=== PATIENT | female | born 1960 | race Caucasian/White ===

== ENCOUNTER 2020-02-13 23:01 | Emergency (ER) | payer MEDICARE, MEDICAID, SELFPAY ==
[2020-02-13 23:10] VITALS: BP 143/83; PULSE 82; RESP 18; O2SAT 93; BMI 18.4
--- NOTE | 2020-02-13 23:16 | ED_ITS ---
HPI - General Adult General: Chief complaint: General Medical Stated complaint: HYPERTENSIVE Time Seen by Provider: 02/13/20 23:13 Source: patient Mode of arrival: ambulatory Limitations: no limitations History of Present Illness: HPI narrative: Patient comes in by ambulance for concerns of high blood pressure. Patient had not felt good for about 4 days stated she will seen her primary care yesterday and her blood pressure was elevated. They recommended that she monitor her blood pressure at home and then follow back up. Patient was checking her blood pressure tonight and noticed that it was high and then got higher so she called the ambulance for further concerns. Patient appears well. Patient appears in no pain. Review of Systems General: Reports: 10 or more systems reviewed and unremarkable except in HPI and below PFSH ED PFSH: Medical History (Updated 02/14/20 @ 02:49 by NAA Kaye) Depression JUS (generalized anxiety disorder) Insomnia Lumbar disc disease with radiculopathy Social History (Updated 09/12/19 @ 16:25 by Maddie Ruiz LPN) Smoking and tobacco status: current every day smoker cigarettes Packs smoked per day: 0.25 Physical Exam Const: COMMON NORMALS: no acute distress and patient oriented x3 GENERAL APPEARANCE: cooperative HENMT: COMMON NORMALS: normocephalic and Normal external nose present HEAD & SCALP: normal to inspection and normocephalic NOSE: Normal external nose present MOUTH: Normal oral and palatal mucosa present Eye: GENERAL EYE: appearance normal, both eyes and all related structures Neck/C-Spine: COMMON NORMALS: full ROM Lymph: LYMPHATIC: no lymphadenopathy noted Chest: COMMONS NORMALS: normal inspection of the chest Resp: COMMON NORMALS: normal respiratory effort EFFORT & INSPECTION: Yes able to speak in complete sentences Cardio: COMMON NORMALS: regular rate and regular rhythm RATE: regular rate RHYTHM: regular rhythm GI: COMMON NORMALS: non-tender : COMMON NORMALS: Yes no CVA tenderness BLADDER/KIDNEY EXAM: Yes no CVA tenderness Back/Pelvis: COMMON NORMALS: no CVA tenderness and thoracic and lumbar spine normal to inspection Extremity: COMMON NORMALS: normal to inspection Neuro: COMMON NORMALS: patient oriented x3 and moves all extremities Psych: COMMON NORMALS: mental status grossly normal and cooperative Skin: COMMON NORMALS: no rashes or lesions noted GENERAL SKIN EXAM: no rashes or lesions noted Course Vital Signs: Vital signs: Vital Signs Pulse Rate 76 07/03/20 03:15 Respiratory Rate 17 02/14/20 03:15 Blood Pressure 165/81 02/14/20 03:15 Pulse Oximetry 94 02/14/20 03:15 MDM - General Adult MDM Narrative: Medical decision making narrative: Patient comes in today for complaints of feeling poorly and elevated blood pressure. Patient reports feeling bad for the last 4 days. Patient states that she went to her doctor and they noticed that she had elevated blood pressure and recommended she monitor it. Patient had taken her blood pressure at home and noted that it was really high causing her great concern and having her call the ambulance. On exam patient appears well. Patient had some mild abdominal pain on palpation. Vital signs were normal except for some mild elevation in blood pressure of 140 systolic. Differential diagnosis includes but not limited to gastritis, gastroenteritis, pancreatitis, uncontrolled hypertension, UTI. Laboratory values noted no significant abnormalities except for mild hypokalemia at 3.1. Urinalysis noticed a large amount of white blood cells in the urine. CT scan of the abdomen and pelvis noted no significant abnormalities. Reviewed exam with patient recommended treatment for urinary tract infection. Recommend follow-up with primary care in 1 week for repeat evaluation of urinalysis. Patient reported understanding agreed to plan. Lab Data: Labs: Lab Results 02/13/20 02/13/20 02/13/20 Range/Units 23:40 23:40 23:40 WBC 4.9 (4.0-10.0) 10^3/ uL RBC 4.26 (4.1-5.3) 10^6/u L Hgb 14.5 (11.5-15.3) g/dL Hct 42.5 (37.0-47.0) % MCV 99.8 H (81-99) fL MCH 34.0 (28.0-34.0) pg MCHC 34.1 (30.0-36.0) g/dL RDW 13.2 (12.1-15.1) % Plt Count 95 L (130-400) 10^3/c mm MPV 9.7 (7.4-10.4) fL Neut % (Auto) 59.2 % Lymph % (Auto) 29.2 % [place] % (Auto) 8.8 % Eos % (Auto) 1.8 % Baso % (Auto) 0.8 % Neut # (Auto) 2.9 (1.8-7.7) 10^3/u L Lymph # (Auto) 1.4 (0.8-4.8) 10^3/u L [place] # (Auto) 0.4 (0.2-0.9) 10^3/u L Eos # (Auto) 0.1 (0.0-0.8) 10^3/u L Baso # (Auto) 0.0 (0.0-0.1) 10^3/u L Nucleated RBC % (a uto) 0 % Nucleated RBCs # 0.0 /100WBC Sodium 141 (136-145) mmol/L Potassium 3.1 L (3.5-5.1) mmol/L Chloride 104 (98-107) mmol/L Carbon Dioxide 24 (22-29) mmol/L Anion Gap 16.1 (5-19) BUN 16 (6-20) mg/dL Creatinine 0.3 L (0.5-0.9) mg/dL GFR Calculation 227.7 H (90-130) mL/min Glucose 88 (65-115) mg/dL Calculated Osmolal ity 288 (285-295) mOsm/k g Calcium 8.6 (8.5-10.5) mg/dL Total Bilirubin 0.3 (0.15-1.2) mg/dL AST 52 H (0-32) U/L ALT 31 (0-33) U/L Alkaline Phosphata se 112 H (35-105) IU/L Troponin T Baselin e 11 H (0-10) ng/L Troponin T 120 Min [place] (0-10) ng/L Delta Troponin T (0-10) ABS# Total Protein 6.7 (6.6-8.7) g/dL Albumin 4.1 (3.5-5.2) g/dL Globulin 2.6 (1.3-4.6) g/dL Lipase (13-60) U/L Urine Color (Yellow) Urine Appearance (CLEAR) Urine pH (5-7) Ur Specific Gravit y (1.005-1.030) Urine Protein (Negative) Urine Glucose (UA) (Normal) Urine Ketones (Negative) Urine Blood (Negative) Urine Nitrate (Negative) Urine Bilirubin (NEGATIVE) Urine Urobilinogen (Negative) mg/dL Ur Leukocyte [place] ase (Negative) Urine RBC (0-2) /hpf Urine WBC (0-5) /hpf Ur Squamous Epith Cells (0-5) Calcium Oxalate Cr ystal /hpf Amorphous Sediment Urine Bacteria (NONE) 02/13/20 02/14/20 02/14/20 Range/Units 23:40 01:17 01:41 WBC (4.0-10.0) 10^3/ uL RBC (4.1-5.3) 10^6/u L Hgb (11.5-15.3) g/dL Hct (37.0-47.0) % MCV (81-99) fL MCH (28.0-34.0) pg MCHC (30.0-36.0) g/dL RDW (12.1-15.1) % Plt Count (130-400) 10^3/c mm MPV (7.4-10.4) fL Neut % (Auto) % Lymph % (Auto) % [place] % (Auto) % Eos % (Auto) % Baso % (Auto) % Neut # (Auto) (1.8-7.7) 10^3/u L Lymph # (Auto) (0.8-4.8) 10^3/u L [place] # (Auto) (0.2-0.9) 10^3/u L Eos # (Auto) (0.0-0.8) 10^3/u L Baso # (Auto) (0.0-0.1) 10^3/u L Nucleated RBC % (a uto) % Nucleated RBCs # /100WBC Sodium (136-145) mmol/L Potassium (3.5-5.1) mmol/L Chloride (98-107) mmol/L Carbon Dioxide (22-29) mmol/L Anion Gap (5-19) BUN (6-20) mg/dL Creatinine (0.5-0.9) mg/dL GFR Calculation (90-130) mL/min Glucose (65-115) mg/dL Calculated Osmolal ity (285-295) mOsm/k g Calcium (8.5-10.5) mg/dL Total Bilirubin (0.15-1.2) mg/dL AST (0-32) U/L ALT (0-33) U/L Alkaline Phosphata se (35-105) IU/L Troponin T Baselin e (0-10) ng/L Troponin T 120 Min [place] 9.37 (0-10) ng/L Delta Troponin T -1.63 L (0-10) ABS# Total Protein (6.6-8.7) g/dL Albumin (3.5-5.2) g/dL Globulin (1.3-4.6) g/dL Lipase 174 H (13-60) U/L Urine Color Yellow (Yellow) Urine Appearance Cloudy (CLEAR) Urine pH 5 (5-7) Ur Specific Gravit y 1.020 (1.005-1.030) Urine Protein 1+ H (Negative) Urine Glucose (UA) Norm (Normal) Urine Ketones Negative (Negative) Urine Blood 2+ H (Negative) Urine Nitrate Positive H (Negative) Urine Bilirubin Neg (NEGATIVE) Urine Urobilinogen Norm (Negative) mg/dL Ur Leukocyte [place] ase 2+ H (Negative) Urine RBC 0-4 H (0-2) /hpf Urine WBC Too numerous to c nt H (0-5) /hpf Ur Squamous Epith Cells 5-10 H (0-5) Calcium Oxalate Cr ystal 5-10 H /hpf Amorphous Sediment 2+ Urine Bacteria 4+ H (NONE) Discharge Plan Discharge Patient Disposition: Home, Self-Care Clinical Impression: Acute UTI Condition: Stable Prescriptions: New cephalexin 500 mg capsule 500 mg PO Q8H 7 Days Qty: 21 RF: 0 No Action citalopram 40 mg tablet 40 mg PO QDAY Qty: 30 RF: 0 trazodone 100 mg tablet 200 mg PO QDAY Qty: 60 RF: 0 buspirone 10 mg tablet 10 mg PO TID Qty: 90 RF: 0 gabapentin 600 mg tablet 600 mg PO TID Qty: 90 RF: 0 meloxicam 15 mg tablet 15 mg PO QDAY Qty: 30 RF: 0 Discharge Orders: Discharge Order (Routine); Ordered 02/14/20 Ordered By: Damon Castle Referrals: Faiza Parikh FNP [Primary Care Provider] - Discharge Diet: Usual diet Discharge Activity: Increase activity as tolerated Patient Instructions: Urinary Tract Infection in Women (ED) Activity Restrictions/Additional Instructions: Drink plenty of water. Take antibiotics as directed. Follow-up with primary care in 1 week for recheck of urine. Return to the ER for worsening fever or new concerns. Coding Level of Care Code ED Logistics Project Manager for Chg Fwd Exam Comprehensive
--- NOTE | 2020-02-13 23:23 | XR_ITS ---
WS: [id number] PORTABLE CHEST HISTORY: Hypertension. COMPARISON: 11/23/2018 Pulmonary hyperinflation. There is very mild interstitial thickening in the lower lung roberts bilater ally. New since the prior study. No focal pneumonia or fluid overload. No pleural effusion or pneumot horax. Cardiac size: Normal. Mediastinum/Aorta: Mild atherosclerosis aorta. No osseous abnormality seen. XR/XR chest 1V portable [id number] IMPRESSION: 1. Very mild interstitial thickening in the lower lung roberts. Likely pneumoni tis. 2. No pneumonia. 3. Emphysema.
[2020-02-13 23:39] VITALS: BP 163/80; PULSE 83; RESP 18; O2SAT 96
[2020-02-13 23:47] LABS: Basophils % 0.8 %; Eosinophils # 0.1 10^3/uL (0.0-0.8); Eosinophils % 1.8 %; Hematocrit 42.5 % (37.0-47.0); Hemoglobin 14.5 g/dL (11.5-15.3); Lymphocytes # 1.4 10^3/uL (0.8-4.8); Lymphocytes % 29.2 %; Mean Corpuscular HGB Conc 34.1 g/dL (30.0-36.0); Mean Corpuscular Volume 99.8 fL (81-99); Mean Platelet Volume 9.7 fL (7.4-10.4); Monocytes # 0.4 10^3/uL (0.2-0.9); Monocytes % 8.8 %; Neutrophils # 2.9 10^3/uL (1.8-7.7); Neutrophils % 59.2 %; Nucleated Red Blood Cells % 0 %; Platelet Count 95 10^3/cmm (130-400); Red Blood Count 4.26 10^6/uL (4.1-5.3); Red Cell Distribution Width 13.2 % (12.1-15.1); White Blood Count 4.9 10^3/uL (4.0-10.0)
[2020-02-14 00:07] LABS: Alanine Aminotransferase 31 U/L (0-33); Albumin Level 4.1 g/dL (3.5-5.2); Alkaline Phosphatase 112 IU/L (35-105); Anion Gap 16.1 (5-19); Aspartate Amino Transferase 52 U/L (0-32); Blood Urea Nitrogen 16 mg/dL (6-20); Calcium 8.6 mg/dL (8.5-10.5); Carbon Dioxide 24 mmol/L (22-29); Chloride 104 mmol/L (98-107); Globulin 2.6 g/dL (1.3-4.6); Glomerular Filtration Rate 227.7 mL/min (90-130); Glucose 88 mg/dL (65-115); Osmolality Calculated 288 mOsm/kg (285-295); Potassium 3.1 mmol/L (3.5-5.1); Sodium 141 mmol/L (136-145); Total Bilirubin 0.3 mg/dL (0.15-1.2); Total Protein 6.7 g/dL (6.6-8.7)
[2020-02-14 00:09] LABS: Troponin(5th) Baseline 11 ng/L (0-10)
[2020-02-14 00:44] LABS: Lipase 174 U/L (13-60)
--- NOTE | 2020-02-14 00:47 | CTR_ITS ---
PROCEDURE INFORMATION: Exam: CT Abdomen And Pelvis With Contrast Exam date and time: 02/14/2020 12:55 AM Age: 59 years old Clinical indication: Abnormal findings; Abnormal lab test; Elevated liver enzymes; Prior surgery; Surgery type: Gb; Additional info: Elevated liver enzymes, abd pain TECHNIQUE: Imaging protocol: Computed tomography of the abdomen and pelvis with intravenous contrast. Radiation optimization: All CT scans at this facility use at least one of these dose optimization techniques: automated exposure control; mA and/or kV adjustment per patient size (includes targeted exams where dose is matched to clinical indication); or iterative reconstruction. Contrast material: OMNI 300; Contrast volume: 75 ml; Contrast route: INTRAVENOUS (IV); COMPARISON: CR Hip 2-3v RIGHT wwo Pelv* [id number] 11/26/2018 9:15 AM RADIATION DOSE METRICS: Total DLP (mGy-cm): 617.62 FINDINGS: Lungs: Lung bases are clear. Liver: The liver is normal. Gallbladder and bile ducts: The gallbladder is absent. There is moderate dilation of the common bile duct. Pancreas: The pancreas is unremarkable. Spleen: The spleen is unremarkable. Adrenals: The adrenal glands are unremarkable. Kidneys and ureters: The kidneys are unremarkable. No hydronephrosis or stones. No ureteral dilation. Stomach and bowel: The stomach is decompressed, preventing meaningful evaluation of wall thickness. The small bowel is nondilated. The colon is unremarkable. Appendix: The appendix is not definitively identified, although there are no secondary signs of appendicitis. Intraperitoneal space: There is no free air or significant intraperitoneal free fluid. Vasculature: The portal, splenic and superior mesenteric veins are patent. There is moderate aortic atherosclerotic disease. Lymph nodes: There is no lymphadenopathy in the retroperitoneum, mesentery, pelvis or inguinal regions. Bladder: Unremarkable as visualized. Reproductive: The uterus is absent. There is no adnexal mass or large cyst. Bones/joints: There is a fixation plate and screws along the right acetabulum. The right hip prosthesis is intact and well aligned. There is a healed fracture of the left superior pubic ramus. There is moderate lower lumbar degenerative disc disease. Soft tissues: The abdominal wall is intact. CT/CT abdomen pelvis w con* [id number] IMPRESSION: 1. Cholecystectomy with moderate extrahepatic biliary dilation. This finding is of uncertain clinical significance. There is no visible intraductal stone. 2. Incidental findings above. Radiation Dose CTDIVOL = (mGy): DLP = 617.62 (mGy-cm)
[2020-02-14 01:41] VITALS: BP 151/71; PULSE 98; RESP 18; O2SAT 93
[2020-02-14] MEDS: iohexol 300 mg/mL 100 mL Btl IV (02:02)
[2020-02-14 02:12] LABS: Urine Appearance Cloudy (CLEAR); Urine Color Yellow (Yellow); pH Urine 5 (5-7)
[2020-02-14 02:13] LABS: Add Urine Microscopic? YES; Bilirubin Urine Neg (NEGATIVE); Blood Urine 2+ (Negative); Glucose Urine UA Norm (Normal); Ketones Urine Negative (Negative); Leukocyte Esterase Urine 2+ (Negative); Nitrate Urine Positive (Negative); Protein Urine 1+ (Negative); Urobilinogen Urine Norm (Negative)
[2020-02-14 02:16] LABS: Add Urine Culture? Yes; Amorphous Sediment Urine 2+; Bacteria Urine 4+; RBC Urine 0-4 /hpf (0-2); WBC Urine TOO NUMEROUS TO CNT /hpf (0-5)
[2020-02-14 02:18] LABS: Troponin 5 2HR 9.37 ng/L (0-10)
[2020-02-14 02:20] LABS: Troponin 5 2HR Delta -1.63 ABS# (0-10)
[2020-02-14 03:15] VITALS: BP 165/81; PULSE 76; RESP 17; O2SAT 94
[2020-02-14] MEDS: cefTRIAXone 1,000 MG in sodium chloride 0.9% (plus) 50 ML 100 MG IV (03:17)
[2020-02-14] MEDS: sodium chloride 0.9% 500 ML 999 ML IV (03:17)
[2020-02-14 04:45] VITALS: BP 164/71; PULSE 80; RESP 18; O2SAT 96
== END 2020-02-14 04:47 | disposition home or self-care (01) ==
PROVIDERS: Emergency Provider Nurse Practitioner Family; PCP Nurse Practitioner Family
DX: N39.0 Urinary tract infection, site not specified (principal); F17.210 Nicotine dependence, cigarettes, uncomplicated
CPT/HCPCS: 12345; 71045; 74177; 80053; 81001; 81003; 83690; 84484; 85025; 87077; 87086; 87186; 96365; 99283; 99284; J0696; J7040; Q9967

== ENCOUNTER 2020-03-09 14:23 | Emergency (ER) | payer MEDICARE, MEDICAID, SELFPAY ==
[2020-03-09 14:25] VITALS: BP 86/53; PULSE 92; RESP 16; TEMP 36.8; O2SAT 98; BMI 17.4
[2020-03-09 14:32] VITALS: BP 98/63; PULSE 89; RESP 18; O2SAT 98
--- NOTE | 2020-03-09 14:40 | W.ED.BACK ---
HPI - Back Pain/Injury General: Chief Complaint: Back Pain/Injury Stated Complaint: BACK PAIN Time Seen by Provider: 03/09/20 14:29 History of Present Illness: HPI Narrative: Patient is a 59-year-old female who comes to the ED with acute on chronic lower back pain. Patient says that last year she saw Dr. Freedman and he told her that she was going to need lower back surgery due to disc bulge and some stenosis. Patient never had surgical procedure done on back. Patient states the last couple days her lower back pain has gotten a lot worse. She describes having some episodic pelvic anesthesia and bowel incontinence last night. Denies any pain radiating down the lower extremities. Patient denies any accident, injury or trauma to cause acute lower back pain. Associated symptoms: Reports fecal incontinence (episode of it last night); Deny abdominal pain, chills, dysuria, fatigue, fever(s), hematuria, nausea or vomiting Review of Systems Const: Denies: fever(s), chills or fatigue Eyes: Denies: change in vision or eye discomfort ENMT: Denies: throat pain, odynophagia, nasal discharge or nasal congestion Card: Denies: chest pain, palpitations, edema, swelling of feet/ankles, dyspnea on exertion or orthopnea Resp: Denies: dyspnea, productive cough or non-productive cough GI: Reports: fecal incontinence (episode of it last night); Denies: abdominal pain, nausea, vomiting, diarrhea, constipation or hematochezia : Denies: flank pain, dysuria or hematuria Musc: Reports: back pain; Denies: neck pain or extremity swelling Skin/Breast: Denies: rash or new lesions Neuro: Denies: headache(s), numbness in extremities or weakness in extremities PFSH ED PFSH: Medical History Depression JUS (generalized anxiety disorder) Insomnia Lumbar disc disease with radiculopathy Social History Smoking and tobacco status: current every day smoker cigarettes Packs smoked per day: 0.5 Alcohol intake: never Substance/Drug Use: never Physical Exam Const: COMMON NORMALS: no acute distress and patient oriented x3 GENERAL APPEARANCE: cooperative and comfortable HENMT: COMMON NORMALS: normocephalic HEAD & SCALP: normocephalic MOUTH: Normal oral and palatal mucosa present THROAT: posterior oropharynx normal and uvula midline Eye: COMMON NORMALS: Equal, round and reactive pupils present PUPIL: Yes Equal, round and reactive pupils present Neck/C-Spine: COMMON NORMALS: supple GENERAL: Yes normal visual inspection Resp: COMMON NORMALS: normal respiratory effort, No retractions, No use of accessory muscles and clear to auscultation bilaterally AUSCULTATION: clear to auscultation bilaterally Cardio: COMMON NORMALS: regular rate, regular rhythm, S1 normal heart sound present, S2 normal heart sound present, No gallops present (Cardio), No clicks present (Cardio), No murmurs present (Cardio) and Peripheral pulses 2+ throughout RATE: regular rate RHYTHM: regular rhythm HEART SOUNDS: S1 normal heart sound present and S2 normal heart sound present PERIPHERAL PULSES: Peripheral pulses 2+ throughout GI: COMMON NORMALS: Normal to inspection, nondistended, normoactive bowel sounds present, Soft to palpation, non-tender and no masses PALPATION: Yes Soft to palpation : COMMON NORMALS: Yes no CVA tenderness BLADDER/KIDNEY EXAM: Yes no CVA tenderness OTHER: Patient reports having some mild pelvic area numbness upon palpation. Back/Pelvis: COMMON NORMALS: no CVA tenderness LUMBAR SPINE/LOWER BACK: Yes lumbar spinal tenderness Lumbar spinal tenderness location: L1, L2 and L3, Yes paraspinal muscle tenderness and Yes straight leg raise negative bilaterally Extremity: COMMON NORMALS: normal to inspection, full ROM and no pedal edema Neuro: COMMON NORMALS: patient oriented x3 and moves all extremities Skin: COMMON NORMALS: no rashes or lesions noted GENERAL SKIN EXAM: no rashes or lesions noted and dry skin Course Vital Signs: Vital signs: Vital Signs Temperature 98.3 F 03/09/20 14:25 Pulse Rate 84 03/09/20 17:09 Respiratory Rate 18 03/09/20 17:09 Blood Pressure 144/72 03/09/20 17:09 Pulse Oximetry 96 03/09/20 17:09 MDM - Back Pain/Injury MDM Narrative: Medical decision making narrative: Patient is a 59-year-old female comes to the ED with acute on chronic lower back pain. Patient was seen Dr. Freedman and was told approximately a year ago that she might need lower back surgery. Patient having acute lower back pain over the past couple days without any acute trauma, injury or lifting injury to cause pain. Patient was complaining of having an episodic bowel incontinence and pelvic anesthesia. CT of the lumbar spine showed no acute fractures or changes compared to previous CT scan. 1. Unchanged exam. Stable moderate to severe degenerative changes and scoliosis. No acute fracture. 2. Unchanged multiple levels of narrowing of the central canal and foramina greatest at L4-L5 accentuated by marked facet and ligamentum flavum hypertrophy. Small disc protrusion with mild narrowing of the central canal and mild mass effect on the bilateral S1 nerve roots is unchanged. I placed an order with case management for patient to be referred to a new neurosurgeon. Patient was discharged with a prescription for ibuprofen and Medrol Dosepak. Patient told to return to ED if symptoms worsen. Patient understood and agreed with plan. Imaging Data^: Other CT: Attestation: I personally reviewed and interpreted this imaging study as follows: Radiologist's impression: [place] [id number] CT Scan Report Signed Patient: Shannon Acosta Unit #: [id number] : 1960 Age/Sex: 59 / F ADM Date: 03/09/20 Loc: ER Room/Bed: Attending Dr: Ordering Provider/Ordering MD: German Joy Date of Service: 03/09/20 Procedure(s): CT lumbar spine wo con* [id number] Accession Number(s): [id number] Report Number: [id number] PROCEDURE INFORMATION: Exam: CT Lumbar Spine Without Contrast Exam date and time: 03/09/2020 3:37 PM Age: 59 years old Clinical indication: Other: Incontinence with seizures; Low back pain; Additional info: Lower back pain with pelvic anesthesia and bowel incontinence. TECHNIQUE: Imaging protocol: Computed tomography images of the lumbar spine without contrast. Radiation optimization: All CT scans at this facility use at least one of these dose optimization techniques: automated exposure control; mA and/or kV adjustment per patient size (includes targeted exams where dose is matched to clinical indication); or iterative reconstruction. COMPARISON: MRI Lumbar Spine w/o [id number] 06/17/2019 3:29 PM RADIATION DOSE METRICS: Total DLP (mGy-cm): 2137.59 FINDINGS: Vertebrae: The vertebral body heights are maintained. There is no acute fracture. There is mild degenerative appearing retrolisthesis of L5 on S1. There are severe facet degenerative changes in the lower lumbar spine. There is levoscoliosis. No aggressive or neoplastic bony destruction is identified. Asymmetric deformity and sclerosis of the left sacrum and old left transverse process fracture L3 are compatible with old injury. There is disc space narrowing in the lower lumbar spine with marginal osteophytes and sclerosis greatest at L5-S1. L1-L2: At L1-L2, there is an unchanged small disc bulge with no stenosis. L2-L3: At L2-L3, there is an unchanged small disc bulge with mild narrowing of the central canal and mild narrowing of the entrance of the foramina but no critical stenosis. L3-L4: At L3-L4, there is an unchanged broad-based disc bulge with flattening of the ventral thecal sac resulting in moderate unchanged narrowing of the central canal and unchanged bilateral moderate foraminal narrowing left slightly greater than right accentuated by facet and ligamentum flavum hypertrophy. L4-L5: There is a vacuum disc at L4-L5. At L4-L5, there is an unchanged broad-based disc protrusion with moderate to severe circumferential narrowing of the central canal accentuated by marked facet and ligamentum flavum hypertrophy. There is unchanged bilateral foraminal narrowing right greater than left. L5-S1: There is a vacuum disc at L5-S1. At L5-S1, there is unchanged small disc protrusion with mild mass effect on the ventral thecal sac and probable mild posterior displacement of the left S1 nerve root. A small component of the disc is migrating posterior to the S1 vertebral body with mild displacement of the right S1 nerve root unchanged since the prior exam. Sacrum/coccyx: The visualized sacrum and pelvis are intact with moderate sacroiliac joint degenerative changes. No sacroiliitis. Soft tissues: There is mild symmetric foraminal narrowing mostly due to facet and ligamentum flavum hypertrophy. CT/CT lumbar spine wo con* [id number] IMPRESSION: 1. Unchanged exam. Stable moderate to severe degenerative changes and scoliosis. No acute fracture. 2. Unchanged multiple levels of narrowing of the central canal and foramina greatest at L4-L5 accentuated by marked facet and ligamentum flavum hypertrophy. Small disc protrusion with mild narrowing of the central canal and mild mass effect on the bilateral S1 nerve roots is unchanged. Radiation Dose CTDIVOL = (mGy): DLP = 2137.59 (mGy-cm) Dictated By: Rosalee Gross Signed By: Rosalee Gross Signed Date/Time: 03/09/201621 DD/ Discharge Plan Discharge Patient Disposition: Home Clinical Impression: Lumbar radiculopathy Condition: Stable Prescriptions: New Medrol (Jaspreet) 4 mg tablets,dose pack See Rx Instructions .ROUTE .COMPLEX Qty: 21 RF: 0 ibuprofen 600 mg tablet 600 mg PO Q8H PRN (Reason: pain) Qty: 30 RF: 0 No Action Multiple Vitamins Tablet 1 tab PO DAILY RF: 0 cyclobenzaprine 10 mg tablet 10 mg PO TID PRN (Reason: Muscle Spasm) RF: 0 hydrochlorothiazide 25 mg tablet 25 mg PO DAILY RF: 0 Vitamin C 1 tab PO DAILY RF: 0 gabapentin 600 mg tablet 300 mg PO TID RF: 0 meloxicam 15 mg tablet 15 mg PO DAILY RF: 0 trazodone 100 mg tablet 100 mg PO BEDTIME RF: 0 venlafaxine 75 mg capsule,extended release 24hr 75 mg PO DAILY RF: 0 Discharge Orders: Discharge Order (Routine); Ordered 03/09/20 Ordered By: German Joy Referrals: Faiza Parikh FNP [Primary Care Provider] - Discharge Diet: Regular Discharge Activity: Limit activity as instructed Patient Instructions: Lumbar Radiculopathy (ED) Activity Restrictions/Additional Instructions: Follow-up with medical provider as directed. Case management should be contacting you the next several days to set up an appointment with a neurosurgeon. Take medications as prescribed. Apply ice and rest back limiting any heavy lifting or activity. Return to the ER or your medical provider if condition worsens. Please read and understand discharge instructions. If any questions, please ask. Discharge Date/Time: 03/09/20 17:10 Coding Level of Care Code ED Training Systems Officer for [employer] Fwd Exam Comprehensive
--- NOTE | 2020-03-09 15:06 | CTR_ITS ---
PROCEDURE INFORMATION: Exam: CT Lumbar Spine Without Contrast Exam date and time: 03/09/2020 3:37 PM Age: 59 years old Clinical indication: Other: Incontinence with seizures; Low back pain; Additional info: Lower back pain with pelvic anesthesia and bowel incontinence. TECHNIQUE: Imaging protocol: Computed tomography images of the lumbar spine without contrast. Radiation optimization: All CT scans at this facility use at least one of these dose optimization techniques: automated exposure control; mA and/or kV adjustment per patient size (includes targeted exams where dose is matched to clinical indication); or iterative reconstruction. COMPARISON: MRI Lumbar Spine w/o [id number] 06/17/2019 3:29 PM RADIATION DOSE METRICS: Total DLP (mGy-cm): 2137.59 FINDINGS: Vertebrae: The vertebral body heights are maintained. There is no acute fracture. There is mild degenerative appearing retrolisthesis of L5 on S1. There are severe facet degenerative changes in the lower lumbar spine. There is levoscoliosis. No aggressive or neoplastic bony destruction is identified. Asymmetric deformity and sclerosis of the left sacrum and old left transverse process fracture L3 are compatible with old injury. There is disc space narrowing in the lower lumbar spine with marginal osteophytes and sclerosis greatest at L5-S1. L1-L2: At L1-L2, there is an unchanged small disc bulge with no stenosis. L2-L3: At L2-L3, there is an unchanged small disc bulge with mild narrowing of the central canal and mild narrowing of the entrance of the foramina but no critical stenosis. L3-L4: At L3-L4, there is an unchanged broad-based disc bulge with flattening of the ventral thecal sac resulting in moderate unchanged narrowing of the central canal and unchanged bilateral moderate foraminal narrowing left slightly greater than right accentuated by facet and ligamentum flavum hypertrophy. L4-L5: There is a vacuum disc at L4-L5. At L4-L5, there is an unchanged broad-based disc protrusion with moderate to severe circumferential narrowing of the central canal accentuated by marked facet and ligamentum flavum hypertrophy. There is unchanged bilateral foraminal narrowing right greater than left. L5-S1: There is a vacuum disc at L5-S1. At L5-S1, there is unchanged small disc protrusion with mild mass effect on the ventral thecal sac and probable mild posterior displacement of the left S1 nerve root. A small component of the disc is migrating posterior to the S1 vertebral body with mild displacement of the right S1 nerve root unchanged since the prior exam. Sacrum/coccyx: The visualized sacrum and pelvis are intact with moderate sacroiliac joint degenerative changes. No sacroiliitis. Soft tissues: There is mild symmetric foraminal narrowing mostly due to facet and ligamentum flavum hypertrophy. CT/CT lumbar spine wo con* [id number] IMPRESSION: 1. Unchanged exam. Stable moderate to severe degenerative changes and scoliosis. No acute fracture. 2. Unchanged multiple levels of narrowing of the central canal and foramina greatest at L4-L5 accentuated by marked facet and ligamentum flavum hypertrophy. Small disc protrusion with mild narrowing of the central canal and mild mass effect on the bilateral S1 nerve roots is unchanged. Radiation Dose CTDIVOL = (mGy): DLP = 2137.59 (mGy-cm)
[2020-03-09 15:26] VITALS: RESP 18; O2SAT 98
[2020-03-09] MEDS: oxyCODONE-APAP 5-325 mg Tablet 1 TAB PO ×2 (15:26→17:04)
[2020-03-09] MEDS: sodium chloride 0.9% 1,000 ML 999 ML IV (15:28)
[2020-03-09 16:32] VITALS: BP 114/72; PULSE 84; RESP 18; O2SAT 95
[2020-03-09 17:04] VITALS: RESP 18; O2SAT 96
[2020-03-09] MEDS: predniSONE 20 mg Tablet 60 MG PO (17:04)
[2020-03-09 17:09] VITALS: BP 144/72; PULSE 84; RESP 18; O2SAT 96
--- NOTE | 2020-03-11 14:53 | PC.SOCIAL ---
Spoke with patient yesterday and she prefers [facility] clinic. Called [facility] today. Received referral form to be filled out. Talked with staff on phone at this clinic and they need last 6 months of notes by Neurosurgeon Dr Freedman as well as any other notes over last 6 months and all imaging reports over last 6 months along with face sheet, copies of insurance card front and back sent to them to review prior to agreeing to schedule appt. This nurse does not have access to Dr Crowell information therefore reached out to Chana Cortez in Medical records. She asked that the referral form along with items needed be listed and sent to her. She will pull all of it and send to facility. This information was sent and requested a notification from Chana once documents have been faxed so can follow up with clinic to ensure receipt and update patient that they are reviewing.
--- NOTE | 2020-03-25 11:04 | DCPLANNER ---
senior product development manager called the [facility], to confirm that a follow up appointment had been scheduled for patient. senior product development manager was told that patients information had been reviewed, and patient was being referred back to surgeon in [place]. Clinic stated that they called patient and informed patient of this.
== END 2020-03-09 17:10 | disposition home or self-care (01) ==
PROVIDERS: Emergency Provider Physician Assistant; PCP Nurse Practitioner Family
DX: M54.16 Radiculopathy, lumbar region (principal); F17.210 Nicotine dependence, cigarettes, uncomplicated
CPT/HCPCS: 12345; 72131; 96360; 96361; 99283; J7030; J7512

== ENCOUNTER 2020-04-16 21:27 | Inpatient (IN) | payer MEDICARE, MEDICAID, SELFPAY ==
[2020-04-16 21:31] VITALS: BMI 17.6
--- NOTE | 2020-04-16 21:32 | ECG_ITS ---
[facility] Test Date: 2020-04-16 Pat Name: Shannon Acosta Department: Room: Gender: Female [employer]: : [id number] Requested By: German Joy Order Number: [id number] Christian MD: Lisa Barajas M.D. Measurements Intervals [place] Rate: 96 P: MO: -1 QRS: 24 QRSD: 97 T: 52 QT: 404 QTc: 511 Interpretive Statements SUPRAVENTRICULAR RHYTHM POSSIBLE RIGHT VENTRICULAR CONDUCTION DELAY [RSR (QR) IN V1/V2] NONSPECIFIC ST ELEVATION [0.05+ mV ST ELEVATION] ABNORMAL RHYTHM ECG Compared to ECG 11/23/2018 11:47:18 Supraventricular rhythm now present ST (T wave) deviation now present Sinus rhythm no longer present Electronically Signed On 04-17-2020 21:13:15 CDT by Lisa Barajas M.D. [id number]
[2020-04-16] MEDS: LORazepam 1 mg Tablet PO (21:42)
--- NOTE | 2020-04-16 21:47 | W.ED.PSYCH ---
HPI - Psych General: Chief Complaint: Psychiatric Symptoms Stated Complaint: SI/ ETOH/ SMALL LAC Time Seen by Provider: 04/16/20 21:28 History of Present Illness: HPI Narrative: Patient is a 59-year-old female who comes to the ED with SI, alcohol intoxication and self-inflicted laceration on left wrist. Patient admits to being intoxicated with alcohol. Patient says she is very depressed and lonely and is having suicidal ideation. She attempted to cut her left wrist today. Patient has a past medical history of alcohol and drug abuse. [facility] [employer] faxed over an affidavit for pt to placed on 96 hour hold. Affidavit stated- that they were called to the neighbor of the patient said that patient was suicidal and depressed and lonely and tried to cut herself with steak knife. Patient admits to using drugs approximately 8 days ago. Associated symptoms: Reports depression and suicidal ideation Review of Systems Const: Denies: fever(s), chills or fatigue Eyes: Denies: change in vision or eye discomfort ENMT: Denies: throat pain, odynophagia, nasal discharge or nasal congestion Card: Denies: chest pain, palpitations, edema, swelling of feet/ankles, dyspnea on exertion or orthopnea Resp: Denies: dyspnea, productive cough or non-productive cough GI: Denies: abdominal pain, nausea, vomiting, diarrhea, constipation or hematochezia : Denies: flank pain, dysuria or hematuria Musc: Denies: neck pain, back pain or extremity swelling Skin/Breast: Reports: new lesions (Linear laceration to left wrist that was self-inflicted. Is superficial.); Denies: rash Neuro: Denies: headache(s), numbness in extremities or weakness in extremities Psych: Reports: depression, suicidal ideation and other (Alcohol intoxication.) [facility] ED PFSH: Medical History Depression JUS (generalized anxiety disorder) Insomnia Lumbar disc disease with radiculopathy Social History Smoking and tobacco status: current every day smoker cigarettes Packs smoked per day: 0.5 Alcohol intake: never Physical Exam Const: COMMON NORMALS: patient oriented x3 and alert GENERAL APPEARANCE: anxious, combative and odor of alcohol detected HENMT: COMMON NORMALS: normocephalic HEAD & SCALP: normocephalic MOUTH: Normal oral and palatal mucosa present THROAT: posterior oropharynx normal and uvula midline Neck/C-Spine: COMMON NORMALS: supple GENERAL: Yes normal visual inspection Resp: COMMON NORMALS: normal respiratory effort, No retractions, No use of accessory muscles and clear to auscultation bilaterally AUSCULTATION: clear to auscultation bilaterally Cardio: COMMON NORMALS: regular rate, regular rhythm, S1 normal heart sound present, S2 normal heart sound present, No gallops present (Cardio), No clicks present (Cardio), No murmurs present (Cardio) and Peripheral pulses 2+ throughout RATE: regular rate RHYTHM: regular rhythm HEART SOUNDS: S1 normal heart sound present and S2 normal heart sound present PERIPHERAL PULSES: Peripheral pulses 2+ throughout GI: COMMON NORMALS: Normal to inspection, nondistended, normoactive bowel sounds present, Soft to palpation, non-tender and no masses PALPATION: Yes Soft to palpation : COMMON NORMALS: Yes no CVA tenderness BLADDER/KIDNEY EXAM: Yes no CVA tenderness Back/Pelvis: COMMON NORMALS: no CVA tenderness Extremity: NARRATIVE EXTREMITY EXAM: Patient has a superficial 2.5 cm linear laceration to wrist. no active bleeding. GENERAL: Yes normal exam except as noted Neuro: COMMON NORMALS: patient oriented x3 and moves all extremities SENSORIUM/ORIENTATION: Yes alert Psych: APPEARANCE: Yes grossly normal ATTITUDE: Yes agitated ACTIVITY/MOTOR BEHAVIOR: Yes appropriate eye contact, Yes fidgeting and Yes restless SPEECH: Yes excessive and Yes rapid MOOD & AFFECT: Yes depressed mood, Yes anxious, Yes sad and Yes tearful THOUGHT PROCESS: disorganized THOUGHT CONTENT: Yes Suicidality present ATTENTION/CONCENTRATION: Yes attention grossly intact and Yes concentration grossly intact MEMORY/COGNITION: Yes memory grossly intact and Yes cognition grossly intact INSIGHT: Limited insight present (Psych) JUDGEMENT: Limited judgement present (Psych) Skin: NARRATIVE SKIN EXAM: Patient has approximately 1.5 cm linear laceration that is superficial to left wrist. Is not actively bleeding. GENERAL SKIN EXAM: dry skin Procedures Laceration Laceration 1: Site: upper extremity (Left wrist) Side (If applicable): left Size (cm): 2.5 Description: linear and clean Depth: simple, single layer Pre-repair: irrigated extensively (With normal saline) Skin layer closed with: other (Dermabond was placed to close laceration.) Technique: other (Dermabond) MDM - Psych MDM Narrative: Medical decision making narrative: Patient is a 59-year-old female who comes to the ED via EMS and is intoxicated suicidal. Patient attempted cutting her left wrist. Left wrist laceration was superficial irrigated it with normal saline and then placed Dermabond to close laceration. [facility] Police Department submitted an affidavit patient was placed on a 96-hour hold and all paperwork was completed and signed. All prescreening labs were performed and I contacted Dr. Valentin told outpatient and he accepted admit into NPU. Lab Data: Attestation: I reviewed the patient's lab results. EKG Data^: EKG 1: Attestation: I personally reviewed and interpreted this EKG as follows: EKG interpretation date: 04/16/20 Interpretation: Supraventricular rhythm, [address] segment elevation or depression seen. Discharge Plan Discharge Admit Provider: Sagar Valentin Condition: Stable Discharge Date/Time: 04/17/20 00:15 Coding Level of Care Code ED Office Administration Instructor for Chg Fwd Exam Comprehensive
[2020-04-16] MEDS: diphenhydrAMINE 50 mg/mL SDV 1mL IM (21:59)
[2020-04-16] MEDS: haloperidol inj 5 mg/mL INJ 1 mL IM (22:02)
[2020-04-16] MEDS: LORazepam 2 mg/mL INJ 1 mL IM (22:02)
[2020-04-16 22:52] VITALS: BP 94/57; RESP 18; O2SAT 92
[2020-04-17 00:03] LABS: Basophils % 0.8 %; Eosinophils # 0.1 10^3/uL (0.0-0.8); Eosinophils % 2.7 %; Hematocrit 41.1 % (37.0-47.0); Hemoglobin 13.5 g/dL (11.5-15.3); Lymphocytes # 1.5 10^3/uL (0.8-4.8); Lymphocytes % 40.7 %; Mean Corpuscular HGB Conc 32.8 g/dL (30.0-36.0); Mean Corpuscular Hemoglobin 33.9 pg (28.0-34.0); Mean Corpuscular Volume 103.3 fL (81-99); Mean Platelet Volume 9.2 fL (7.4-10.4); Monocytes # 0.3 10^3/uL (0.2-0.9); Monocytes % 7.7 %; Neutrophils % 47.8 %; Nucleated Red Blood Cells % 0 %; Platelet Count 91 10^3/cmm (130-400); Red Blood Count 3.98 10^6/uL (4.1-5.3); Red Cell Distribution Width 14.1 % (12.1-15.1); White Blood Count 3.8 10^3/uL (4.0-10.0)
[2020-04-17 00:16] LABS: Alanine Aminotransferase 38 U/L (0-33); Albumin Level 3.7 g/dL (3.5-5.2); Alkaline Phosphatase 130 IU/L (35-105); Anion Gap 16.6 (5-19); Aspartate Amino Transferase 147 U/L (0-32); Blood Urea Nitrogen 11 mg/dL (6-20); Carbon Dioxide 28 mmol/L (22-29); Chloride 108 mmol/L (98-107); Glomerular Filtration Rate 126.3 mL/min (90-130); Glucose 91 mg/dL (65-115); Osmolality Calculated 302 mOsm/kg (285-295); Potassium 4.6 mmol/L (3.5-5.1); Sodium 148 mmol/L (136-145); Total Bilirubin 0.3 mg/dL (0.15-1.2); Total Protein 6.7 g/dL (6.6-8.7)
[2020-04-17 00:18] VITALS: BP 103/64; PULSE 84; RESP 17; TEMP 36.2; O2SAT 93
[2020-04-17 00:19] LABS: Acetaminophen < 5.0 ug/mL (10-30); Salicylate < 0.3 mg/dL (3-10)
[2020-04-17 00:20] LABS: Alcohol Level 332 mg/dL (0-10); Calcium 5.4 mg/dL (8.5-10.5)
--- NOTE | 2020-04-17 01:54 | PC.NURSE ---
Abrasions both hands. Superficial cutting to left wrist. Multiple tattoos.
[2020-04-17 06:00] VITALS: BP 131/75; PULSE 80; RESP 14; TEMP 36.2; O2SAT 91
[2020-04-17] MEDS: thiamine 100 mg Tablet PO (08:58)
[2020-04-17] MEDS: folic acid 1 mg Tablet PO (08:58)
[2020-04-17] MEDS: multivitamin therapeutic Tablet 1 TAB PO (08:58)
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
[2020-04-17 13:47] VITALS: BP 185/83; PULSE 83; RESP 18; TEMP 37.2; O2SAT 95
[2020-04-17] MEDS: hyDROXYzine 25 mg Capsule PO ×3 (13:51→21:49)
[2020-04-17] MEDS: gabapentin 300 mg Capsule 600 MG PO ×2 (13:51→17:31)
[2020-04-17] MEDS: LORazepam 2 mg Tablet PO (17:36)
--- NOTE | 2020-04-17 17:38 | PC.NURSE ---
PRN ATIVAN ATIVAN 2MG PO PER CIWA SCORE OF 10. PATIENT IS ANXIOUS, SWEATING, TREMULOUS AND HAS A HEADACHE. PATIENTS BLOOD PRESSURE IS 197/91. WILL CONTINUE TO MONITOR FOR MEDICATION EFFECTIVENESS.
--- NOTE | 2020-04-17 18:30 | PC.NURSE ---
PRN ATIVAN FOLLOW UP MEDICATION EFFECTIVE. PATIENT IS LYING IN BED RESTING. CIWA SCORE 0. BLOOD PRESSURE IS 172/91.
[2020-04-17 21:03] VITALS: BP 172/91; PULSE 88; RESP 17; TEMP 36.6; O2SAT 97
[2020-04-17] MEDS: mirtazapine 30 mg Tablet PO (21:49)
[2020-04-18 06:00] VITALS: BP 186/82; PULSE 76; RESP 20; TEMP 37.1; O2SAT 96
[2020-04-18] MEDS: LORazepam 2 mg Tablet PO (07:45)
--- NOTE | 2020-04-18 07:46 | PC.NURSE ---
PRN ATIVAN Patient stated she had a headache and was visual shaking. Two mg Ativan PO given per CIWA protocol. Will continue to monitor.
--- NOTE | 2020-04-18 09:00 | PC.NURSE ---
PRN FOLLOW UP Patietn resting with eyes closed. Continue to monitor.
[2020-04-18] MEDS: gabapentin 300 mg Capsule 600 MG PO (09:13)
[2020-04-18] MEDS: multivitamin therapeutic Tablet 1 TAB PO (09:14)
[2020-04-18] MEDS: folic acid 1 mg Tablet PO (09:14)
[2020-04-18] MEDS: thiamine 100 mg Tablet PO (09:14)
[2020-04-18] MEDS: hyDROXYzine 25 mg Capsule PO (09:14)
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
[2020-04-18 10:14] VITALS: BP 186/82; PULSE 76; RESP 20; TEMP 37.1; O2SAT 96
== END 2020-04-18 11:30 | disposition home or self-care (01) | DRG 881 ==
LOC: ER 22:14 → NP 23:01
PROVIDERS: Admitting Provider Psychiatry & Neurology Psychiatry; Emergency Provider Physician Assistant; PCP Nurse Practitioner Family; Visit Provider Psychiatry & Neurology Psychiatry
DX: F43.21 Adjustment disorder with depressed mood (principal); F10.121 Alcohol abuse with intoxication delirium; Y90.8 Blood alcohol level of 240 mg/100 ml or more; F17.210 Nicotine dependence, cigarettes, uncomplicated
CPT/HCPCS: 12345; 80053; 80307; 85025; 93005; 96372; 99284; J1200; J1630; J2060; J3411

== ENCOUNTER 2021-03-08 09:22 | Outpatient (CLI) | payer MEDICARE, MEDICAID, SELFPAY ==
[2021-03-08 10:15] LABS: Basophils % 0.8 %; Hematocrit 43.1 % (37.0-47.0); Hemoglobin 13.9 g/dL (11.5-15.3); Lymphocytes # 1.2 10^3/uL (0.8-4.8); Lymphocytes % 30.8 %; Mean Corpuscular HGB Conc 32.3 g/dL (30.0-36.0); Mean Corpuscular Hemoglobin 33.2 pg (28.0-34.0); Mean Corpuscular Volume 102.9 fL (81-99); Mean Platelet Volume 10.2 fL (7.4-10.4); Monocytes # 0.4 10^3/uL (0.2-0.9); Monocytes % 9.6 %; Neutrophils # 2.22 10^3/uL (1.8-7.7); Neutrophils % 57.5 %; Nucleated Red Blood Cells % 0 %; Platelet Count 141 10^3/cmm (130-400); Red Blood Count 4.19 10^6/uL (4.1-5.3); Red Cell Distribution Width 12.5 % (12.1-15.1); White Blood Count 3.9 10^3/uL (4.0-10.0)
--- NOTE | 2021-03-08 13:28 | ONC CON_ITS ---
Dr. Walter New Patient Note Patient: Shannon Acosta Unit #: [id number]: 1960 Dicatated By: Mehul Walter M.D.Date of Visit: Mar 08, 2021 Onc MED New Patient/Consult Referring Physician: Suman Dunn History of Present Illness: Ms. Shannon Acosta, is a 60-year-old female with a history of chronic back pain was recently evaluated by Dr. Velázquez, orthopedic physician in [facility] and her lab work-up done on September 14, 2020 showed white blood count 3.3 hemoglobin 13.1 hematocrit 37.8 platelets 78,000 with a normal differential and CMP showed ALT 105 AST 112 within normal bilirubin and alk phos. As per patient back surgery was planned at that time and it was postponed because of low platelet count and she was referred to us for evaluation. Patient has longstanding history of regular alcohol use and still active as per medical record patient was admitted to hospital on April 16, 2020 at that time her alcohol level was 332., Patient also has history of meth use as per patient she quit that about 2 years ago, denies IV drug abuse. Denies any history of low platelets in the past. Denies any evidence of gross bleeding no history of nosebleed or gum bleed, no melena or hematochezia no hemoptysis or hematemesis, no hematuria. No petechia or ecchymosis. Denies any night sweats denies any weight loss, denies any recurrent fever denies any lymphadenopathy or abdominal fullness. Denies any recent infections, denies any new medication, denies any nrkg-wzv-vckokuy or herbal therapy. Patient denies any history of hepatitis, not sure whether she was tested as a preop evaluation for planned back surgery which was scheduled in September 2020 and was postponed because of thrombocytopenia. Patient has longstanding history of smoking still smoke about pack a day. As per patient last time she had hard liquor was about 2 weeks prior to this visit Past Medical History: Ms. Seth medical history consists of chronic pain, depression, and POST TRAUMATIC STRESS DISORDER. PREVIOUS HISTORY OF SUBSTANCE ABUSE AND ALCOHOL ABUSE. Past Surgical History: Ms. Seth surgical/procedural history consists of caesarean section, cervical fusion, cholecystectomy, hysterectomy, right hip surgery, right knee repair, and tonsillectomy. Medications: Ascorbic Acid 2 Tablet (of 500 mg) Tablet, chewable Oral daily, Cholecalciferol 1 Capsule (of 1.25 mg ) Oral daily Allergies: No Known Allergies. Social History: Ms. Acosta is single. She is a daily smoker who has smoked 1.0 pack/day for 12 years. She is an active drinker. HISTORY OF ALCOHOL ABUSE AND SUBSTANCE ABUSE states drinks ETOH socially, but not often. Family History: Ms. Acosta's mother at age 64. Ms. Acosta's father at age 44. Ms. Acosta has 1 brother who is alive. She has 1 sister who is alive. Review Of Symptoms: Review of Systems is not available for this patient. Vital Signs: Performed on Mar 08, 2021 11:08: 5, 19.58, 1.66 sq.m, 67 in, 97 %, 60 /min, 18 /min, 114/68 mm(hg), 97.1 F (LOW), and 125 lbs (HIGH). Performance Status: 0 - Fully active, able to carry on all predisease activities without restrictions. (ECOG) Physical Examination: ENMT - No mouth sores, no thrush, no jaundice no cervical lymphadenopathy, Respiratory - Lungs are clear to auscultation, Cardiovascular - Regular rate and rhythm of heart, Abdomen - Soft, bowel sounds present, Extremities - No visible edema. Lab/Imaging: Most recent lab results are not available for this patient. Impression: Bicytopenia e.g. mild leukopenia with a normal differential and mild/moderate thrombocytopenia seen on labs done on September 14, 2020, repeat CBC on March 08, 2021 shows resolution of thrombocytopenia as platelet count was 141,000 compared to 78,000 previously, white blood count 3900 with normal differential etiology could be multifactorial including nutritional e.g. folic acid deficiency, thiamine deficiency or B12, as patient has longstanding history of alcohol abuse, with compromised nutritional status. Other possibility could be low-grade self-limiting ITP, or underlying subacute infection or chronic inflammation like hepatitis as CMP done in September 2020 showed elevated AST and ALT. Alcohol abuse for the last 20 years still active History of meth use, as per patient she quit 2 years ago History of chronic smoking, still active Chronic back pain History of hip replacement. Plan: Discussed with patient regarding her labs white blood count 3.9 hemoglobin 13.9 hematocrit 43.1 platelets 241,000 MCV 102.9 with a normal differential Clinically, patient is doing reasonably well with no B symptoms, no evidence of gross bleeding her repeat CBC today showed resolution of moderate thrombocytopenia and improvement in her total white blood cell with a normal differential At this point, because the patient with longstanding history of alcohol abuse and abnormal transaminases, will consider abdominal sonogram to assess liver and spleen size As CBC has shown resolution of mild thrombocytopenia, etiology of her mild thrombocytopenia could be due to alcohol induced bone marrow suppression or transient or self-limiting low-grade ITP, at this point if patient wants to pursue with her back surgery, based on today's CBC she can pursue but would recommend repeating CBC prior to surgery and then monitor after the surgery to ensure platelet count in normal range and if needed platelet transfusion can be considered in case patient developed thrombocytopenia. Patient was advised not to consume alcohol at all prior to the surgery and after the surgery. And also advised to call us in case any evidence of gross bleeding or petechia or ecchymosis. As for his mild leukopenia is concerned, she has adequate absolute neutrophil counts, etiology could be multifactorial including nutritional, patient was advised to take [id number] folic acid 1 mg twice a day, thiamine 100 mg daily and multivitamin and refrain from alcohol use. We will monitor transaminases level if there is no improvement, may consider referral to pipe bowls paint trimmer. She was also advised to quit smoking was offered any assistance she may need. She will return to clinic in 1 month with CBC, CMP and abdominal sonogram. Signed By: Mehul Walter M.D. <<Signature on File>>
== END 2021-03-08 09:23 | disposition home or self-care (01) ==
LOC: ONCMED 09:28
PROVIDERS: PCP Nurse Practitioner Family; Visit Provider Internal Medicine Hematology & Oncology
DX: D69.6 Thrombocytopenia, unspecified (principal); D72.819 Decreased white blood cell count, unspecified; Z86.59 Personal history of other mental and behavioral disorders; F10.20 Alcohol dependence, uncomplicated; F17.210 Nicotine dependence, cigarettes, uncomplicated; G89.29 Other chronic pain
CPT/HCPCS: 85025; 99204

== ENCOUNTER → 2022-03-16 09:54 | Outpatient (BNVA) | payer MEDICARE, MEDICAID, SELFPAY | PROVIDERS: PCP Nurse Practitioner Family; Visit Provider Orthopaedic Surgery | DX: M25.552 Pain in left hip (principal) | CPT/HCPCS: 73502; 99213 ==

== ENCOUNTER 2022-04-11 10:11 | Inpatient (IN) | payer MEDICARE, MEDICAID, SELFPAY ==
[2022-04-11] VITALS (16 sets, daily range): BP systolic 104–170; BP diastolic 55–99; PULSE 78–134; RESP 16–25; TEMP 36.3–37.5; O2SAT 92–100; BMI 20.5
--- NOTE | 2022-04-11 10:11 | CT_ITS ---
WS: [id number] CT HEAD NONCONTRAST HISTORY: stroke TECHNIQUE: Contiguous axial imaging performed through the brain in 2.5 mm imaging. Bone and soft tiss ue windows. Sagittal and coronal reformats reviewed. All CT scans at [facility] use at least one of these dose optimization techniques: automated exposure control; mA and/or kV adjustment per pa tient size (includes targeted exams where dose is matched to clinical indication); or iterative recon struction. DLP: 1139.28 mGy.cm COMPARISON: None available. Subacute nonhemorrhagic RIGHT MCA territory stroke. There is significant loss of the reid-white matte r differentiation and edema with sulcal effacement. There is very slight bowing by 2 mm of the midlin e structures to the LEFT. Mild cerebral atrophy and small vessel ischemic disease otherwise. Addition al smaller areas of decreased attenuation in the cortex of the LEFT frontal and parietal lobes suprav entricular. No inferior displacement of the cerebellar tonsils. Ventricles: Mild effacement of the RIGHT lateral ventricle due to the cerebral edema in the RIGHT MC A territory. No intraventricular blood. 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 No air-fluid levels within the sinuses. Mild m ucoperiosteal thickening in the visualized LEFT maxillary sinus. Mastoid air cells: Well pneumatized. Calvarium and scalp: Skull is intact with no soft tissue edema or swelling. CT/CT head wo con* [id number] IMPRESSION: 1. Large RIGHT MCA territory subacute infarct. Loss of the reid-white matter d ifferentiation with partial effacement of the RIGHT lateral ventricle. Addition al subacute or remote ischemic changes in the cortex of the LEFT frontal pariet al lobe above the ventricles. 2. No hemorrhage. 3. 2 mm midline shift of the LEFT. Notified Brain Garrido DO at 04/11/2022 10:33 AM.
--- NOTE | 2022-04-11 10:21 | CT_ITS ---
WS: [id number] CT CERVICAL SPINE HISTORY: trauma TECHNIQUE: Contiguous 2.5 mm axial imaging performed through the entire cervical spine. Sagittal and coronal reformats also performed. All CT scans at [facility] use at least one of these dose o ptimization techniques: automated exposure control; mA and/or kV adjustment per patient size (include s targeted exams where dose is matched to clinical indication); or iterative reconstruction. DLP: 165.87 mGy-cm. COMPARISON: 06/17/2019 Prior anterior cervical fusion from C5 through C7. Interbody spacers at C5-6 and C6-7. Mild straighte deirdre of the normal lordosis. Moderate degenerative disc space narrowing at C3-4-5. Facet joints are n ormally aligned. Craniocervical junction is normally aligned. There are a few small foci of air noted near the caverno us sinus of uncertain etiology. Facet joint arthritis throughout the cervical spine. Moderate involving the RIGHT C3-4 facet joint wi th foraminal narrowing. Bilateral greatest on the RIGHT at C4-5 with moderate RIGHT foraminal stenosi s. Small central disc protrusion at C5-6 with facet joint arthritis and foraminal narrowing. Mild ost eophytic ridging at C6-7 with mild foraminal narrowing. Centrilobular emphysematous changes at the lung apices. 4 mm spiculated nodule at the RIGHT lung apex . CT/CT cervical spin wo con* [id number] IMPRESSION: 1. No acute cervical spine fracture. 2. Anterior cervical fusion is unchanged from C5 to C7. 3. Multilevel facet joint arthritis and foraminal narrowing as above.
--- NOTE | 2022-04-11 10:21 | XR_ITS ---
WS: [id number] Exam: XR chest 1V portable [id number] Date/Time of Exam: 04/11/2022 10:23 AM Reason For Exam: dyspnea/cough Comparison 02/13/2020. The lungs are fully expanded. There is a 5.9 cm soft tissue density superimposing the right lower efrain g zone and may represent a mass in the right lower lobe. Remaining lung roberts are clear heart size i s normal. Fullness in the AP window. The superior mediastinum is normal in contour. Fusion hardware s een in the lower cervical spine. Bony structures are intact. Recommendations: Nonemergent contrast CT scan of the chest would be indicated for further workup. XR/XR chest 1V portable [id number] IMPRESSION: 1. 5.9 cm soft tissue density superimposing the right lower lung zone and may r epresent a mass in the right lower lobe. This is new since previous study. 2. Fullness in the AP window. Mediastinal lymphadenopathy not excluded.
--- NOTE | 2022-04-11 10:43 | ECG_ITS ---
[facility] Test Date: 2022-04-11 Pat Name: Shannon Acosta Department: Room: Gender: Female Ham Smoker: : 1960 Requested By: Brain French Order Number: [id number] Christian MD: Rosalino Henry M.D. Measurements Intervals [place] Rate: 123 P: 82 [place]: 122 QRS: 2 QRSD: 78 T: 69 QT: 313 QTc: 448 Interpretive Statements SINUS TACHYCARDIA POSSIBLE RIGHT VENTRICULAR CONDUCTION DELAY [RSR (QR) IN V1/V2] ABNORMAL RHYTHM ECG Compared to ECG 04/16/2020 22:57:51 Supraventricular rhythm no longer present ST (T wave) deviation no longer present Electronically Signed On 04-11-2022 13:59:35 CDT by Rosalino Henry M.D. [id number]
[2022-04-11 10:45] LABS: ABG PCO2 29.8 mmHg (35-45); ABG PH Result 7.41 (7.35-7.45); Alveolar-Arterial Oxygen Gradi 6.3 mmHg (5-10); Arterial Blood Gas Hematocrit 53.7 % (37-47); Base Excess ABG -4.4 mmol/L (-2.0-2.0); Blood Gas Allen Test Pos; Blood Gas Operator Identificat CAK; Blood Gas Sample Site Brachial, left; Blood Gas Sample Type Arterial; Carboxyhemoglobin 1.4 %THgb (0.4-20.1); HCO3 ABG 18.7 mmol/L (22-26); HGB O2 Sat 90.7 % (95-100); Ionized Calcium Level - ABG 1.3 mmol/L (1.1-1.4); Methemoglobin 0.4 % (0.4-1.5); Oxygen Device ROOM AIR; Oxygen Saturation ABG 92.4; PO2 ABG 63.8 mmHg (80.0-100.0); Potassium Level - ABG 3.7 mmol/L (3.5-5.0); Total Hemoglobin 17.5 g/dL (12-16)
--- NOTE | 2022-04-11 10:52 | PC.PHAR ---
unable to verify medications with pt-medications entered are meds that [facility] states they have filled recently for the pt-notes are made in the pharmacy comments with last fill dates
[2022-04-11 11:00] LABS: Basophils # 0.1 10^3/uL (0.0-0.1); Basophils % 0.4 %; Eosinophils # 0.2 10^3/uL (0.0-0.8); Eosinophils % 1.3 %; Hematocrit 52.6 % (37.0-47.0); Hemoglobin 17.1 g/dL (11.5-15.3); Lymphocytes # 1.4 10^3/uL (0.8-4.8); Lymphocytes % 8.5 %; Mean Corpuscular HGB Conc 32.5 g/dL (30.0-36.0); Mean Corpuscular Hemoglobin 30.7 pg (28.0-34.0); Mean Corpuscular Volume 94.4 fl (81-99); Mean Platelet Volume 9.7 fL (7.4-10.4); Monocytes # 1.8 10^3/uL (0.2-0.9); Monocytes % 10.6 %; Neutrophils # 13.22 10^3/uL (1.8-7.7); Neutrophils % 78.5 %; Nucleated Red Blood Cells % 0 %; Platelet Count 340 10^3/cmm (130-400); Red Blood Count 5.57 10^6/uL (4.1-5.3); Red Cell Distribution Width 15.3 % (12.1-15.1); White Blood Count 16.8 10^3/uL (4.0-10.0)
--- NOTE | 2022-04-11 11:02 | CT_ITS ---
WS: [id number] CT ABDOMEN AND PELVIS NONCONTRAST HISTORY: abd pain TECHNIQUE: Imaging performed through the abdomen and pelvis. Coronal and sagittal reformats are submi tted. All CT scans at [facility] use at least one of these dose optimization techniques: auto mated exposure control; mA and/or kV adjustment per patient size (includes targeted exams where dose is matched to clinical indication); or iterative reconstruction. DLP: 422.85 mGy.cm COMPARISON: Chest radiograph 04/11/2022 Lower thorax: Incompletely visualized solid mass RIGHT lower lobe measures 2.6 x 5.0 cm. Background o f chronic emphysema. Heart normal size. Liver: Normal size. Stable low attenuation along the falciform ligament. Gallbladder: Prior cholecystectomy. Pancreas: Normal size and attenuation. Normal pancreatic duct. No pancreatitis or mass. Spleen: Normal. Adrenal glands: Normal. No mass. Right kidney: Normal size kidney with no mass or hydronephrosis. Left kidney: Normal size kidney with no mass or hydronephrosis. Aorta: Mild atherosclerosis abdominal aorta with no aneurysm. No free fluid, intraperitoneal air or significant lymphadenopathy. GI tract: Nondistended stomach. No small bowel obstruction. Mild diffuse fecal retention and constipa tion. The appendix is not definitely visualized. No acute inflammation. Abdominal wall: Negative. No hernia. Pelvis: Vance catheter in a nondistended bladder. Osseous structures: Anterior and posterior lumbar fusion hardware from L4 to S1. Acute appearing 20% L3 compression fracture without retropulsion. Prior RIGHT hip arthroplasty. Remote healed fracture LE FT pubic rami. CT/CT abdomen pelvis wo con [id number] IMPRESSION: 1. Solid mass incompletely visualized RIGHT lower lobe measures at least 2.6 x 5.0 cm. Suspicious for lung neoplasm. 2. Acute appearing 20% L3 compression fracture without retropulsion. 3. No ascites. 4. Prior cholecystectomy.
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
[2022-04-11 11:20] LABS: Troponin(5th) Baseline 49 ng/L (0-10)
[2022-04-11 11:39] LABS: Creatine Phosphokinase 7064 U/L (26-192)
[2022-04-11 12:05] LABS: Add Urine Microscopic? YES; Bilirubin Urine 1+ (Negative); Blood Urine 3+ (Negative); Glucose Urine UA Norm (Normal); Ketones Urine 1+ (Negative); Leukocyte Esterase Urine Trace (Negative); Nitrate Urine Negative (Negative); Protein Urine 1+ (Negative); Urine Appearance Clear (CLEAR); Urine Color Dark Yellow (Yellow); Urobilinogen Urine 4 mg/dL (Negative); pH Urine 5 (5-7)
[2022-04-11 12:06] LABS: Add Urine Culture? No; Bacteria Urine 1+ /hpf; Coarse Granular Casts Urine 0-4 /lpf; Mucus Urine 1+ /hpf; Squamous Epithelial Cell Urine 0-4 /hpf (0-5)
--- NOTE | 2022-04-11 12:21 | ECG_ITS ---
[facility] Test Date: 2022-04-11 Pat Name: Shannon Acosta Department: Room: Gender: Female Card Grinder: : 1960 Requested By: Brain French Order Number: [id number] Christian MD: Rosalino Henry M.D. Measurements Intervals [place] Rate: 127 P: 84 RI: 125 QRS: 33 QRSD: 82 T: 76 QT: 309 QTc: 451 Interpretive Statements SINUS TACHYCARDIA POSSIBLE RIGHT VENTRICULAR CONDUCTION DELAY [RSR (QR) IN V1/V2] ABNORMAL RHYTHM ECG Compared to ECG 04/11/2022 10:43:35 No significant changes Electronically Signed On 04-11-2022 14:01:59 CDT by Rosalino Henry M.D. [id number]
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
[2022-04-11 13:38] LABS: Troponin 5 2HR 54.25 ng/L (0-10)
[2022-04-11 13:40] LABS: Troponin 5 2HR Delta 5.25 ABS# (0-10)
[2022-04-11 13:58] LABS: Glucose Point of Care 69 mg/dL (70-110)
[2022-04-11 14:02] LABS: INR 1.23 (0.8-1.2)
[2022-04-11 14:07] LABS: Alanine Aminotransferase 84 U/L (0-33); Albumin Level 3.3 g/dL (3.5-5.2); Alkaline Phosphatase 99 U/L (35-105); Anion Gap 18.5 (5-19); Aspartate Amino Transferase 196 U/L (0-32); Blood Urea Nitrogen 78 mg/dL (8-23); Calcium 9.6 mg/dL (8.5-10.5); Carbon Dioxide 24 mmol/L (22-29); Chloride 111 mmol/L (98-107); Glomerular Filtration Rate 50.5 mL/min (90-130); Glucose 169 mg/dL (65-115); Osmolality Calculated 337 mOsm/kg (285-295); Potassium 3.5 mmol/L (3.5-5.1); Sodium 150 mmol/L (136-145); Total Bilirubin 0.6 mg/dL (0.15-1.2); Total Protein 8.3 g/dL (6.6-8.7)
[2022-04-11] MEDS: sodium chloride 0.9% 250 ML IV (14:18)
[2022-04-11 14:34] LABS: Adenovirus Not Detected (NOT DETECT); Chlamydia Pneumoniae Not Detected (NOT DETECT); Coronavirus 229E,HKU1,NL63,OC4 Not Detected (NOT DETECT); Human Metapneumovirus Not Detected (NOT DETECT); Human Rhinovirus/Enterovirus Not Detected (NOT DETECT); Influenza A Not Detected (NOT DETECT); Influenza A H1 Not Detected (NOT DETECT); Influenza A H1-2009 Not Detected (NOT DETECT); Influenza A H3 Not Detected (NOT DETECT); Influenza B Not Detected (NOT DETECT); Mycoplasma Pneumoniae Not Detected (NOT DETECT); Parainfluenza Virus Type 1 Not Detected (NOT DETECT); Parainfluenza Virus Type 2 Not Detected (NOT DETECT); Parainfluenza Virus Type 3 Not Detected (NOT DETECT); Parainfluenza Virus Type 4 Not Detected (NOT DETECT); Respiratory Syncytial Virus A Not Detected (NOT DETECT); Respiratory Syncytial Virus B Not Detected (NOT DETECT); SARS-COV-2 Not Detected (NOT DETECT)
--- NOTE | 2022-04-11 15:53 | USCV_ITS ---
Shannon Acosta Age: 61 Gender: F : 1960 Exam Date: 04/11/2022 18:36 Ordering Phys: Angeline Morgan MD Technologist: FREDO [place] [facility] [place]: MCA CVA. Patient is unresponsive, moves only the RIGHT arm. Risk Factors: Previous Vascular Surgery: Right Brachial BP: / Left Brachial BP: / Right Left Velocity (cm/s) Spectral Plaque Velocity (cm/s) Spectral Plaque Syst/Diast Broadening Syst/Diast Broadening 70.60/ 4.40 None None Prox CCA 86.80 / 13.10 None None 49.30/ 10.50 None None Mid CCA 67.00 / 11.80 None None / None None Distal CCA 28.30 / 7.20 None None 36.80/ 12.50 Min Hetro Prox ICA 43.30 / 12.80 Min Hetro 69.70/ 22.30 Min None Mid ICA 57.10 / 18.70 Min None 100.80/29.90 Min None Distal ICA 48.10 / 14.40 Min None 48.60 Min None ECA 43.80 Min None 1.43 ICA/CCA 0.66 Antegrade Vertebral Antegrade 35.00/ 10.30 cm/s 43.40/ 14.50 cm/s Tri Subclavian Tri 48.70 105.2 0 FINDINGS Comparison: none available. Forward flow in the extracranial carotid arteries but abnormal waveforms of high resistance. Velocities are slightly decreased and mild plaque. Findings consistent with increased intracranial pressure. Antegrade vertebral arteries. CONCLUSIONS Mild carotid atherosclerosis. No carotid stenosis. Abnormal carotid waveforms indicating increased intracranial pressure. Dr. Jessica Sainz DO (Electronically Signed) Final Date: 12 April 2022 07:58 S
[2022-04-11] MEDS: aspirin 300 mg Supp PR (17:02)
--- NOTE | 2022-04-11 17:02 | PC.SLP ---
TOY PAINTER unable to eval at this time, due to decreased pt alertness and ability to participate.
[2022-04-11] MEDS: cefTRIAXone 1,000 MG in sodium chloride 0.9% (plus) 50 ML 100 MG IV (17:04)
[2022-04-11] MEDS: heparin 5,000 unit/mL INJ 1 mL 5000 UNIT SUBCUT (17:04)
[2022-04-11] MEDS: sodium chloride 0.9% 1,000 ML 100 ML IV (17:05)
[2022-04-11 17:06] LABS: Glucose Point of Care 178 mg/dL (70-110)
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
--- NOTE | 2022-04-11 17:54 | ECG_ITS ---
[facility] Test Date: 2022-04-11 Pat Name: Shannon Acosta Department: Room: 256 Gender: Female Digital Archivist: : 1960 Requested By: Brain French Order Number: [id number] Christian MD: Florencio Esparza M.D. Measurements Intervals [place] Rate: 132 P: 78 WA: 113 QRS: -25 QRSD: 73 T: 70 QT: 303 QTc: 449 Interpretive Statements SINUS TACHYCARDIA WITH SHORT WA INTERVAL BORDERLINE LEFT AXIS DEVIATION [QRS AXIS < -20] NONSPECIFIC T-WAVE ABNORMALITY Compared to ECG 04/11/2022 12:28:48 Short WA interval now present T-wave abnormality now present Electronically Signed On 04-12-2022 16:34:39 CDT by Florencio Esparza M.D. [email or web address]
[2022-04-11] MEDS: insulin lispro 100 unit/1 mL SUBCUT (18:20)
[2022-04-11 18:48] LABS: Troponin 5 6HR 50.52 ng/L (0-10)
[2022-04-11 18:49] LABS: Troponin 5 6HR Delta 1.52 ng/L (0-12)
[2022-04-11 20:23] LABS: Glucose Point of Care 131 mg/dL (70-110)
[2022-04-11 21:11] LABS: Urine Creatinine 123 mg/dL (28-217)
[2022-04-11 21:13] LABS: Urine Random Sodium 10 mmol/L
[2022-04-12] VITALS (14 sets, daily range): BP systolic 98–127; BP diastolic 57–84; PULSE 90–148; RESP 19–26; TEMP 36.8–39.3; O2SAT 77–94
[2022-04-12] MEDS: sodium chlor 0.9% + KCl 20 mEq 20 MEQ/1,000 ML BAG 100 MEQ IV (03:59)
[2022-04-12] MEDS: heparin 5,000 unit/mL INJ 1 mL 5000 UNIT SUBCUT ×2 (04:01→15:58)
[2022-04-12 05:03] LABS: Basophils % 0.2 %; Eosinophils % 0.2 %; Hematocrit 53.4 % (37.0-47.0); Hemoglobin 17.1 g/dL (11.5-15.3); Lymphocytes # 1.3 10^3/uL (0.8-4.8); Lymphocytes % 8.6 %; Mean Corpuscular Hemoglobin 30.7 pg (28.0-34.0); Mean Corpuscular Volume 95.9 fl (81-99); Mean Platelet Volume 9.8 fL (7.4-10.4); Monocytes % 13.1 %; Neutrophils # 11.62 10^3/uL (1.8-7.7); Neutrophils % 77.3 %; Nucleated Red Blood Cells % 0 %; Platelet Count 285 10^3/cmm (130-400); Red Blood Count 5.57 10^6/uL (4.1-5.3); Red Cell Distribution Width 15.3 % (12.1-15.1)
[2022-04-12 05:18] LABS: Estmated Average Glucose 108; Hemoglobin A1C 5.4 % (4.0-6.0)
[2022-04-12 05:48] LABS: Alanine Aminotransferase 96 U/L (0-33); Albumin Level 2.6 g/dL (3.5-5.2); Alkaline Phosphatase 89 U/L (35-105); Aspartate Amino Transferase 210 U/L (0-32); Blood Urea Nitrogen 77 mg/dL (8-23); Calcium 9.1 mg/dL (8.5-10.5); Carbon Dioxide 19 mmol/L (22-29); Chloride 120 mmol/L (98-107); Chol HDL Ratio 4.54 mg/dL (0.0-4.40); Cholesterol 168 mg/dL (0-200); Globulin 4.9 g/dL (1.3-4.6); Glomerular Filtration Rate 41.6 mL/min (90-130); Glucose 150 mg/dL (65-115); HDL Cholesterol 37 mg/dL (60-100); LDL Cholesterol Calculated 89 mg/dL (50-129); LDL HDL Ratio 2.41 RATIO (0.00-3.22); Magnesium 2.4 mg/dL (1.7-2.3); Osmolality Calculated 344 mOsm/kg (285-295); Phosphorus 4.7 mg/dL (2.5-4.5); Sodium 154 mmol/L (136-145); Thyroid Stimulating Hormone 1.44 uIU/mL (0.27-4.20); Total Bilirubin 0.7 mg/dL (0.15-1.2); Total Protein 7.5 g/dL (6.6-8.7); Triglycerides 208 mg/dL (0-150); Uric Acid 12.7 mg/dL (2.4-5.7)
[2022-04-12 06:15] LABS: Creatine Phosphokinase 5420 U/L (26-192)
--- NOTE | 2022-04-12 06:23 | NUR.SHIFT ---
Pt in bed resting, no needs were ask, she mumbled some things early on in the evening, opened her eyes to look at me, did not respond to her name, bed is low and locked, call light is in reach, bed alarm is on, Critical CK of 5420 was reported to Doctor at 0620 this morning, Doctor ask if she was on fluids and I responded yes.
[2022-04-12 06:43] LABS: Glucose Point of Care 154 mg/dL (70-110)
[2022-04-12] MEDS: insulin lispro 100 unit/1 mL SUBCUT ×3 (09:01→17:38)
[2022-04-12] MEDS: dextrose 5% 1,000 ML 100 ML IV ×2 (10:09→22:11)
--- NOTE | 2022-04-12 10:35 | PC.OT ---
OT EVALUATION ORDERS RECEIVED. HOLD TODAY DUE TO CRITICAL CK
[2022-04-12] MEDS: aspirin 300 mg Supp PR (10:57)
[2022-04-12 11:09] LABS: Glucose Point of Care 169 mg/dL (70-110)
[2022-04-12 11:52] LABS: Bacillus cereus group Not Detected (NOT DETECT); Bacillus subtillis group Not Detected (NOT DETECT); Corynebacterium Not Detected (NOT DETECT); Cutibacterium acnes (P.acnes) Not Detected (NOT DETECT); Enterococcus Not Detected (NOT DETECT); Enterococcus faecalis Not Detected (NOT DETECT); Enterococcus faecium Not Detected (NOT DETECT); Lactobacillus species Not Detected (NOT DETECT); Listeria Not Detected (NOT DETECT); Listeria monocytogenes Not Detected (NOT DETECT); Micrococcus Not Detected (NOT DETECT); Pan Candida Not Detected (NOT DETECT); Pan Gram-Negative Not Detected (NOT DETECT); Staphylococcus epidermidis Detected (NOT DETECT); Staphylococcus lugdunensis Detected (NOT DETECT); Staphylococcus species Detected (NOT DETECT); Streptococcus agalactiae Not Detected (NOT DETECT); Streptococcus anginosus group Not Detected (NOT DETECT); Streptococcus pneumoniae Not Detected (NOT DETECT); Streptococcus pyogenes Not Detected (NOT DETECT); Streptococcus species Not Detected (NOT DETECT); mecA Detected (NOT DETECT); mecC Not Detected (NOT DETECT)
--- NOTE | 2022-04-12 12:06 | PC.CHAP ---
Pastoral Care Encounter/Spiritual Assessment Type of Contact [] Declined train control electronic technician visit [] Patient/Family/Request visit [] Outpatient visit [] Follow-up visit [] Physician referral [] Code/Alert [x] Routine visit [] Staff referral [] Actively dying [x] Patient sleeping [] Family support [] [] Out of room [] Palliative care [] [] Receiving care in room [] Pre-surgical visit [] Trauma [] Long length of stay [] ICU visit [] Other: Relational/Emotional Strength [] Patient feels connected with others/family/visitors/staff [] Distress [] Loneliness/isolation [] Abandonment Spirituality of Patient [] Person of Kelsi [] Attends Mandaeism of their Kelsi [] Believes in Prayer [] Reads Bible or Synagogue materials [] There are Spiritual issues to be addressed Design Eng Interventions [] Prayer [] Active listening [] Non-anxious presence [] Spiritual/emotional support [] Crisis/trauma care [] Spiritual counseling [] Bereavement support [] Provided bereavement packet [] Provided Bible/devotional materials [] Provided toy/stuffed animal, coloring book to patient or family member [] Provided Communion [] Anointing/[place] [] Salvation [] Completed spiritual assessment [] Other: Impact on Illness or Injury [] Angry [] Fearful [] Anxious [] Often cries [] Exhaustion [] Unable to work [] Unable to attend muslim [] Unable to walk/stand [] Unable to read [] Unable to drive [] Unable to eat/drink [] Unable to sleep [] Unable to be with family [] Patient intubated [] Other: Summary Time spent with patient
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
[2022-04-12] MEDS: cefTRIAXone 1,000 MG in sodium chloride 0.9% (plus) 50 ML 100 MG IV (15:58)
--- NOTE | 2022-04-12 16:23 | PC.NURSE ---
DR. MEJIA ASKED THIS NURSE TO LET HIM KNOW WHEN FAMILY ARRIVED FROM OUT OF TOWN. THIS NURSE CONTACTED HIM WHEN FAMILY ARRIVED. THIS NURSE WENT AND TALKED WITH FAMILY AND FAMILY STATED THEY'VE GOTTEN CONFLICTING STORIES AND WOULD LIKE TO SPEAK WITH THE DOCTOR. THIS NURSE LET DR. MEJIA KNOW AND HE STATED OK IF THEY AGREE MAKE HER AND . THIS NURSE REPLIED WITH YOU'RE COMING CORRECT? . DR. MEJIA STATED I HAVE ALREADY TALKED TO THEM OVER THE PHONE AND EXPLAINED EVERYTHING . THIS NURSE TOLD DR. MEJIA THAT FAMILY HAS REQUESTED TO SPEAK WITH HIM IN PERSON. DR. MEJIA REPLIED WITH THERE IS NOTHING MUCH TO SAY, HAVE EXPLAINED EVERYTHING . DR. MEJIA THEN CALLED THE NURSES STATION AND ASKED THIS NURSE FOR SON CHUCK'S PHONE NUMBER. THIS NURSE GAVE HIM THE NUMBER AND EXPLAINED AGAIN THAT FAMILY REQUESTED HIM IN PERSON. THIS NURSE PROCEEDED TO PATIENT'S ROOM TO LET CHUCK KNOW THAT DR. MEJIA WAS CALLING HIM AND STAYED FOR THE CONVERSATION. CHUCK SPECIFICALLY REQUESTED DR. MEJIA TO COME TALK IN PERSON AND DR. MEJIA STATED OVER THE PHONE THAT HE WAS OUT OF THE HOSPITAL AND THEY HAD TALKED ABOUT THIS EARLIER . CHUCK AND SIBLINGS DECIDED TO MAKE PATIENT AND, BUT WERE FRUSTRATED WITH THE FACT THAT DR. MEJIA WOULD NOT COME TO THE ROOM.
[2022-04-12 17:20] LABS: Glucose Point of Care 142 mg/dL (70-110)
[2022-04-12 20:37] LABS: Glucose Point of Care 184 mg/dL (70-110)
[2022-04-13] VITALS (17 sets, daily range): BP systolic 101–124; BP diastolic 76–80; PULSE 133–146; RESP 18–32; TEMP 36.6–39.6; O2SAT 80–98
[2022-04-13] MEDS: acetaminophen 650 mg Supp PR ×3 (01:14→19:49)
[2022-04-13] MEDS: heparin 5,000 unit/mL INJ 1 mL 5000 UNIT SUBCUT ×2 (03:44→14:58)
[2022-04-13 04:41] LABS: Basophils % 0.1 %; Eosinophils % 0.1 %; Hematocrit 52.4 % (37.0-47.0); Hemoglobin 16.4 g/dL (11.5-15.3); Lymphocytes # 1.7 10^3/uL (0.8-4.8); Lymphocytes % 12.4 %; Mean Corpuscular HGB Conc 31.3 g/dL (30.0-36.0); Mean Corpuscular Hemoglobin 30.2 pg (28.0-34.0); Mean Corpuscular Volume 96.5 fl (81-99); Mean Platelet Volume 10.1 fL (7.4-10.4); Monocytes # 1.6 10^3/uL (0.2-0.9); Monocytes % 11.6 %; Neutrophils # 10.51 10^3/uL (1.8-7.7); Neutrophils % 75.1 %; Nucleated Red Blood Cells % 0.1 %; Platelet Count 221 10^3/cmm (130-400); Red Blood Count 5.43 10^6/uL (4.1-5.3); Red Cell Distribution Width 15.8 % (12.1-15.1)
[2022-04-13 05:11] LABS: Alanine Aminotransferase 89 U/L (0-33); Albumin Level 2.5 g/dL (3.5-5.2); Alkaline Phosphatase 72 U/L (35-105); Aspartate Amino Transferase 169 U/L (0-32); Blood Urea Nitrogen 76 mg/dL (8-23); Carbon Dioxide 19 mmol/L (22-29); Chloride 122 mmol/L (98-107); Globulin 4.6 g/dL (1.3-4.6); Glomerular Filtration Rate 38.2 mL/min (90-130); Glucose 231 mg/dL (65-115); Osmolality Calculated 346 mOsm/kg (285-295); Sodium 153 mmol/L (136-145); Total Bilirubin 0.6 mg/dL (0.15-1.2); Total Protein 7.1 g/dL (6.6-8.7)
[2022-04-13 05:37] LABS: Creatine Phosphokinase 4036 U/L (26-192)
[2022-04-13 06:26] LABS: Glucose Point of Care 218 mg/dL (70-110)
[2022-04-13] MEDS: dextrose 5% 1,000 ML 100 ML IV ×2 (08:36→15:10)
[2022-04-13] MEDS: aspirin 300 mg Supp PR (08:37)
[2022-04-13] MEDS: insulin lispro 100 unit/1 mL SUBCUT ×4 (08:37→21:22)
[2022-04-13] MEDS: piperacillin-tazobactam 3.375 GM in sodium chloride 0.9% (plus) 50 ML IV ×2 (08:40→19:49)
[2022-04-13] MEDS: levalbuterol 0.63 mg/3 mL Neb INHALATION ×3 (09:51→20:54)
--- NOTE | 2022-04-13 11:31 | PC.OT ---
HOLD OT EVALUATION DUE TO CONTINUED CRITICAL CK AND TEMP OF 102
[2022-04-13 11:52] LABS: Glucose Point of Care 211 mg/dL (70-110)
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
[2022-04-13] MEDS: vancomycin 1,000 MG in sodium chloride 0.9% 250 ML 250 MG IV (14:54)
[2022-04-13 17:11] LABS: Glucose Point of Care 155 mg/dL (70-110)
--- NOTE | 2022-04-13 17:47 | PM.PN ---
Subjective Subjective: Patient is about the same. Unfortunately for unclear reason the Betadine paint has not been implemented by the staff as educated and ordered. Medications: Reviewed: Yes Vitals/I&O/Wt Last Vital Signs Temp 103.1 F H 04/13/22 17:35 Pulse 145 H 04/13/22 16:00 Resp 32 H 04/13/22 15:48 BP 122/80 04/13/22 16:00 Pulse Ox 92 04/13/22 16:00 O2 Del Method 04/13/22 15:48 O2 Flow Rate 15 04/13/22 09:59 04/13/22 04/13/22 04/13/22 06:59 14:59 22:59 Intake Total 1050 / 1050 906.667 / 1956.667 Output Total 125 / 775 Balance -125 / 930 1050 / 1050 906.667 / 1956.667 Physical Exam Narrative: Patient is conscious alert, confused Moderate distress BMI 20.2 Extremities no cyanosis no clubbing no edema Left hip and thigh area shows stability of the denuded skin and no evidence of discharge yet mild erythema is appreciated and the leathery component of the lower part of the area shows to have no skin breaks. Urinary Catheter Management: Vance: Cath Placed During This Visit: yes Reason for Continuing Indwelling Catheter: Other Urinary Catheter Date of Insertion: 04/11/22 Data : 04/13/22 04:26 04/13/22 04:26 Micro: Microbiology 04/11/22 10:50 Blood Culture - Preliminary Blood Staphylococcus epidermidis Staphylococcus lugdunensis 04/11/22 10:45 Blood Culture - Preliminary Blood A&P Assessment and plan (1) Unstageable pressure ulcer: 1-continue nutrition optimization 2-Betadine paint of the leathery area of the skin twice a day and application of ABD. nurses education was implemented about the importance to continue skin care. 3-management of medical comorbidities per hospitalist service 4-frequent turning in bed every 2 hours No indication for surgical intervention at this point Assurance and education All questions have been answered and all concerns have been addressed to patient's satisfaction. Status: Acute Attestations Medical Necessity Statement*: Per admitting service Coding Level of Care Code Acute Adoption Services Manager for [facility] Diagnoses Unstageable pressure ulcer L89.95
[2022-04-13 20:39] LABS: Glucose Point of Care 177 mg/dL (70-110)
[2022-04-14] VITALS: BP 120/87; PULSE 143; RESP 24; TEMP 38.6; O2SAT 97
[2022-04-14] MEDS: heparin 5,000 unit/mL INJ 1 mL 5000 UNIT SUBCUT (03:21)
[2022-04-14 04:00] VITALS: PULSE 114; RESP 28
--- NOTE | 2022-04-14 04:31 | PC.NURSE ---
Addendum entered by Deanne Byrd LPN 04/14/22 04:42: Dr Linares was also notified of changes Original Note: PT CHANGE IN CONDITION/SON NOTIFICATION Pt is having periods of apnea and mottling has progressed up to body and hands. Son Raimundo was called and updated on pts condition. Nurse staying at bedside so pt will not be alone.
--- NOTE | 2022-04-14 05:20 | PC.NURSE ---
PT EXPIRATION Pt at 0515 with nurse at bedside holding her hand. Resp ceased and HR ceased. Dr Linares notified and son Raimundo notified. No arrangements have been discussed and son would like pt to be placed in [facility] for now. Post mortem care performed. IV's & Vance removed.
--- NOTE | 2022-04-14 06:05 | PC.NURSE ---
[facility] Body transported to [facility] by [employer] Operator
--- NOTE | 2022-04-14 07:46 | PM.DDS ---
Discharge Providers DDS Date of Admission: 04/11/22 12:35 Date Summary Completed: 04/14/22 Attending Provider at Admission: Angeline Morgan MD Time of : 05:15 Attending Provider at Discharge: Ruben Babin MD Primary Care Provider: NAA Randle Diagnoses Hospital Diagnoses (1) Acute ischemic right MCA stroke: (2) Acute kidney injury: (3) Rhabdomyolysis: Qualifiers: Rhabdomyolysis type: non-traumatic Qualified Code(s): M62.82 - Rhabdomyolysis (4) Right lower lobe lung mass: (5) Compression fracture of L3 vertebra: Qualifiers: Encounter type: initial encounter Qualified Code(s): S32.030A - Wedge compression fracture of third lumbar vertebra, initial encounter for closed fracture (6) Pressure ulcers of skin of multiple topographic sites: Reason for Visit Reason for Visit STROKE LIKE SYMPTOMS Summary Date and Time of Date of : 04/14/22 Time of : 05:15 Summary Summary: Shannon Acosta is a 61 year old female who presented to the emergency room via EMS after welfare check initiated by neighbors.?Mrs. Acosta was last seen on Monday.? EMS found her unresponsive in the bathtub.? There was no reported water in the tub. She was admitted for the management of large right MCA territory acute ischemic CVA. NIH stroke scale on admission was 27, she was not a candidate for tPA, she was kept on stroke protocol, patient also had, CHRIS and rhabdomyolysis, as well as right lower lung mass, found on CT abdomen pelvis. Patient was critically ill during the hospital stay, when I took over the patient, her GCS was around 6, she was minimally responsive to pain, later she also started spiking high-grade temperature, possibly secondary to aspiration pneumonia, as well as extensive pressure ulcers of the skin, patient was started on broad-spectrum antibiotics, she was also hypernatremic, for which she was on IV fluids, unfortunately patient was not responding to the medical management, family was constantly updated, she on 04/14/2022 at 5:15 AM. Additional Data Advance directives?: No Discharge Plan Discharge Patient Disposition: Condition: Prescriptions: Discontinued cyclobenzaprine 10 mg tablet 10 mg PO TID PRN (Reason: Muscle Spasm) meloxicam 15 mg tablet 15 mg PO DAILY citalopram 40 mg tablet 40 mg PO DAILY trazodone 100 mg tablet 100 mg PO BEDTIME gabapentin 600 mg tablet 600 mg PO TID Referrals: Parikh,NAA Kendall [Primary Care Provider] - DS Attestations Time Spent in /Discharge Care*: less than 30 min Quality - AMI: AMI present?: No Quality - Stroke: CVA present?: No Quality - VTE: VTE present?: No Coding Level of Care Code Acute [employer] for [facility] [place] Diagnoses Acute ischemic right MCA stroke I63.511 Acute kidney injury N17.9 Rhabdomyolysis M62.82 Rhabdomyolysis type: non-traumatic Right lower lobe lung mass R91.8 Compression fracture of L3 vertebra S32.030A Encounter type: initial encounter Pressure ulcers of skin of multiple topographic sites L89.90
== END 2022-04-14 06:00 | disposition expired | DRG 64 ==
LOC: ER 11:06 → MEDSURG 15:00
PROVIDERS: Student in an Organized Health Care Education/Training Program; Admitting Provider Hospitalist; Emergency Provider Family Medicine; PCP Nurse Practitioner Family; Visit Provider Internal Medicine
DX: I63.9 Cerebral infarction, unspecified (principal); J69.0 Pneumonitis due to inhalation of food and vomit; M62.82 Rhabdomyolysis; S32.030A Wedge compression fracture of third lumbar vertebra, initial encounter for closed fracture; N17.9 Acute kidney failure, unspecified; E87.0 Hyperosmolality and hypernatremia; X58.XXXA Exposure to other specified factors, initial encounter; R91.8 Other nonspecific abnormal finding of lung field; R29.727 NIHSS score 27; R40.2434 Glasgow coma scale score 3-8, 24 hours or more after hospital admission; L89.899 Pressure ulcer of other site, unspecified stage; L89.220 Pressure ulcer of left hip, unstageable; L89.210 Pressure ulcer of right hip, unstageable; L89.819 Pressure ulcer of head, unspecified stage; L89.529 Pressure ulcer of left ankle, unspecified stage; F32.A Depression, unspecified; F41.1 Generalized anxiety disorder; E86.0 Dehydration; R74.01 Elevation of levels of liver transaminase levels; R73.9 Hyperglycemia, unspecified; F43.10 Post-traumatic stress disorder, unspecified; X58.XXXS Exposure to other specified factors, sequela; F17.210 Nicotine dependence, cigarettes, uncomplicated; G89.29 Other chronic pain; M54.2 Cervicalgia; M51.16 Intervertebral disc disorders with radiculopathy, lumbar region; Z86.59 Personal history of other mental and behavioral disorders; Z91.410 Personal history of adult physical and sexual abuse; Z98.1 Arthrodesis status; Z90.49 Acquired absence of other specified parts of digestive tract; Z90.710 Acquired absence of both cervix and uterus; Z96.641 Presence of right artificial hip joint
CPT/HCPCS: 36415; 36416; 36600; 51702; 70450; 71045; 72125; 74176; 80051; 80053; 80061; 81001; 82330; 82550; 82570; 82805; 82962; 83036; 83735; 84100; 84300; 84443; 84484; 84550; 85025; 85610; 87040; 87150; 87205; 87635; 92523; 92610; 93005; 93880; 94640; 96372; 97530; 97760; 99285; J0696; J1644; J1815; J2543; J3370; J7030; J7050; J7614; L0637